=== PATIENT | female | born 1985 | race Two or more races ===

== ENCOUNTER 2018-03-01 20:15 | Observation (INO) | payer SELFPAY | END 2018-03-01 21:55 | disposition home or self-care (01) | DRG 782 | LOC: LDRP 20:15 | PROVIDERS: ADMIT Obstetrics & Gynecology; ATTEND Obstetrics & Gynecology | DX: O36.8120 Decreased fetal movements, second trimester, not applicable or unspecified (principal); Z3A.23 23 weeks gestation of pregnancy | CPT/HCPCS: 59025; 81002; G0378 ==

== ENCOUNTER 2020-03-07 21:01 | Inpatient (IN) | payer MEDICAID, OTHER ==
[~2020-03-07] VITALS: Ht 162.6 cm; Wt 85.2 kg
[2020-03-07 22:15] LABS: Basophils # (auto) 0.1 10 ^3/uL (0-0.2); Basophils % (auto) 0.4 % (0.0-2.0); Eosinophils # (auto) 0.1 10 ^3/uL (0-0.8); Eosinophils % (auto) 0.8 % (0.0-7.0); Hematocrit 40.4 % (36.0-46.0); Hemoglobin 13.7 g/dL (12.2-16.2); Lymphocytes # (auto) 4.1 10 ^3/uL (0.4-5.4); Lymphocytes % (auto) 35.5 % (10.0-50.0); Mean Corpuscular Hemoglobin 29.4 pg (28.0-32.0); Mean Corpuscular Volume 86.5 fL (80.0-100.0); Monocytes # (auto) 0.7 10 ^3/uL (0-1.3); Monocytes % (auto) 6.3 % (0.0-12.0); Neutrophils # (auto) 6.6 10 ^3/uL (1.6-8.6); Nucleated Red Blood Cells % 0.1 %; Platelet Count (auto) 291 10^3/uL (140-450); Red Blood Cells 4.68 10^6/uL (4.0-5.20); Red Cell Distribution Width 13.4 % (11.8-14.3); White Blood Cell 11.7 10^3/uL (4.4-10.8)
[2020-03-07 22:32] LABS: Albumin 3.6 g/dL (3.4-5.0); Potassium 3.3 mmol/L (3.5-5.1)
[2020-03-07 22:45] LABS: Bilirubin, Total 0.3 mg/dL (0.2-1.0); Total Protein 7.8 g/dL (6.4-8.2)
[2020-03-07 22:58] LABS: BUN/Creatinine Ratio 20.8
[2020-03-07] MEDS ORDERED: MORPHINE SULFATE 4 MG/ML SYR/VIAL IV ONE (23:15)
[2020-03-07] MEDS ORDERED: SODIUM CHLORIDE 0.9% 1,000 ML IV ONE ×2 (23:15)
[2020-03-07] MEDS ORDERED: ONDANSETRON HCL 4 MG/2 ML VIAL IV ONE (23:15)
[2020-03-07] MEDS ORDERED: POTASSIUM CHL 20 Meq TABLET PO ONE (23:30)
[2020-03-07 23:41] LABS: Urine Bacteria FEW /hpf (None Seen); Urine Blood 1+ /uL (Negative); Urine Mucus FEW (None Seen); Urine Specific Gravity 1.028 (1.001-1.035); Urine WBC 6 /hpf (0 - 5)
[2020-03-07 23:47] LABS: Amphetamine Screen, Urine NEGATIVE (NEGATIVE); Barbiturate Scree,Urine NEGATIVE (NEGATIVE); Benzodiazephine Screen, Urine NEGATIVE (NEGATIVE); Cannabinoid Screen, Urine NEGATIVE (NEGATIVE); Cocaine Screen, Urine NEGATIVE (NEGATIVE); Opiate Scree,Urine NEGATIVE (NEGATIVE); Phencyclidine Screen, Urine NEGATIVE (NEGATIVE)
[2020-03-08] MEDS ORDERED: MORPHINE SULF INJ 2 MG/ML SYRINGE 1ML IV PRN ×2 (02:45→10:30)
[2020-03-08] MEDS ORDERED: ONDANSETRON HCL 4 MG/2 ML VIAL IV PRN (02:45)
[2020-03-08] MEDS ORDERED: ACETAMINOPHEN 325 MG TAB PO PRN (02:45)
[2020-03-08] MEDS ORDERED: NITROGLYCERIN 0.4 MG SL TAB SL PRN (02:45)
[2020-03-08 04:13] LABS: Amylase 484 U/L (25-115)
[2020-03-08 04:22] LABS: Lipase 5509 U/L (73-393)
[2020-03-08 05:45] VITALS: BP 102/62
--- NOTE | 2020-03-08 05:45 | NUR ---
Telemetry admit from ER PATRICK JOESPH admitted to Telemetry unit after SBAR received. Patient oriented to DUANE LOJA, RN primary RN, unit, room, bed, and unit policies regarding patient care and visiting hours. Patient now on continuous telemetry monitoring, tele box #56 and telemetry reading on arrival to unit is NSR 88 Patient, weighed by bedscale and encouraged to call if they need something. All questions and concerns addressed, patient verbalized understanding.
--- NOTE | 2020-03-08 08:00 | NUR ---
Opening Shift Note Assumed care of patient, awake, alert and oriented X4. No S/S of distress/SOB or pain. Patient is Maldivian speaking but understands Maori and is able to communicate in Maori. Tele# 56, sinus rhythm @ 77 bpm. IV to left antecubital, 20 gauge, patent and infusing D5W/0.45% NS/KCL 20 meq @ 75 ml/hr. Instructed on POC and to call for assist PRN, verbalized understanding. Bed locked, in lowest position, call light within reach, will continue to monitor for changes Q1hr and PRN.
[2020-03-08 09:03] VITALS: BP 111/61
[2020-03-08] MEDS: D5W/SOD CHL 0.45%/KCL 20MEQ 1,000 ML IV SCH ×2 (09:14→16:54)
--- NOTE | 2020-03-08 10:20 | NUR ---
ROUNDS Dr Gregg at bedside for rounds, new orders received and followed through. Patient updated on plan of care, verbalized understanding.
[2020-03-08] MEDS ORDERED: HYDROcodone-ACET 5/325MG TAB PO PRN (10:30)
[2020-03-08] MEDS ORDERED: cefTRIAXone 1GM/50ML D5W 50 ML IV ONE (10:30)
[2020-03-08] MEDS: PANTOPRAZOLE 40 MG/10 ML VIAL INJ IV SCH (11:01)
[2020-03-08 12:32] VITALS: BP 119/62
[2020-03-08 16:41] VITALS: BP 113/60
[2020-03-08 18:36] LABS: BUN/Creatinine Ratio 14.8; Calcium 8.2 mg/dL (8.5-10.1); Potassium 3.9 mmol/L (3.5-5.1)
--- NOTE | 2020-03-08 19:12 | NUR ---
Care endorsed to RISSA Mcgee, night nurse.
--- NOTE | 2020-03-08 19:13 | NUR ---
Opening note Assumed care of patient, patient is alert and orientated x4. No sob or distress noted. Bed is locked in lowest position, side rails up x2. Patient is French speaking, laying in bed watching TV. POC reviewed. Patient verbalized understanding. Will continue to monitor q1hr and PRN.
[2020-03-08 22:00] VITALS: BP 124/74
[2020-03-09] MEDS: D5W/SOD CHL 0.45%/KCL 20MEQ 1,000 ML IV SCH ×2 (04:34→17:44)
[2020-03-09 05:00] VITALS: BP 116/62
[2020-03-09 06:06] LABS: Basophils # (auto) 0 10 ^3/uL (0-0.2); Basophils % (auto) 0.6 % (0.0-2.0); Eosinophils # (auto) 0.1 10 ^3/uL (0-0.8); Eosinophils % (auto) 1.3 % (0.0-7.0); Hematocrit 35.2 % (36.0-46.0); Hemoglobin 12.3 g/dL (12.2-16.2); Lymphocytes # (auto) 2.5 10 ^3/uL (0.4-5.4); Lymphocytes % (auto) 41.5 % (10.0-50.0); Mean Corpuscular Hemoglobin 30.2 pg (28.0-32.0); Mean Corpuscular Hgb Conc. 34.9 g/dL (32.0-36.0); Mean Corpuscular Volume 86.5 fL (80.0-100.0); Monocytes # (auto) 0.4 10 ^3/uL (0-1.3); Monocytes % (auto) 6.8 % (0.0-12.0); Neutrophils # (auto) 2.9 10 ^3/uL (1.6-8.6); Neutrophils % (auto) 49.8 % (37.0-80.0); Nucleated Red Blood Cells % 0.2 %; Platelet Count (auto) 225 10^3/uL (140-450); Red Blood Cells 4.08 10^6/uL (4.0-5.20); Red Cell Distribution Width 13.2 % (11.8-14.3); White Blood Cell 5.9 10^3/uL (4.4-10.8)
[2020-03-09 06:23] LABS: Albumin 3.1 g/dL (3.4-5.0); Calcium 7.9 mg/dL (8.5-10.1); Potassium 3.5 mmol/L (3.5-5.1)
[2020-03-09 06:27] LABS: BUN/Creatinine Ratio 13.8; Bilirubin, Total 0.3 mg/dL (0.2-1.0); Total Protein 6.5 g/dL (6.4-8.2)
--- NOTE | 2020-03-09 07:17 | NUR ---
closing note endorsed care to day shift RN. no sob or distress noted.
[2020-03-09 09:00] VITALS: BP 118/58
[2020-03-09] MEDS: cefTRIAXone 1GM/50ML D5W 50 ML IV SCH (09:05)
[2020-03-09] MEDS: PANTOPRAZOLE 40 MG/10 ML VIAL INJ IV SCH (09:05)
--- NOTE | 2020-03-09 10:43 | NUR ---
Spoke to Dr. Susan Cueto regarding verification of orders, received new orders, noted and carried it out.
[2020-03-09 13:00] VITALS: BP 115/68
--- NOTE | 2020-03-09 13:00 | NUR ---
Per Dr. Gregg, advance diet as tolerated.
[2020-03-09 17:00] VITALS: BP 117/71
--- NOTE | 2020-03-09 19:06 | NUR ---
Opening Shift Note Assumed care of patient after receiving report from RISSA Padilla. Patient is awake and alert with no S/S of distress/SOB or pain. Call light within reach, bed in lowest locked position x2 side rails, HOB semi fowlers. Instructed on POC and to call for assist PRN, will continue to monitor for changes Q1hr and PRN.
[2020-03-09 22:05] VITALS: BP 120/69
[2020-03-10 04:36] VITALS: BP 107/56
[2020-03-10 06:51] LABS: Basophils # (auto) 0.1 10 ^3/uL (0-0.2); Basophils % (auto) 0.9 % (0.0-2.0); Eosinophils # (auto) 0.1 10 ^3/uL (0-0.8); Eosinophils % (auto) 1.2 % (0.0-7.0); Hematocrit 38.5 % (36.0-46.0); Hemoglobin 13.2 g/dL (12.2-16.2); Lymphocytes # (auto) 2.2 10 ^3/uL (0.4-5.4); Lymphocytes % (auto) 36.7 % (10.0-50.0); Mean Corpuscular Hemoglobin 30.1 pg (28.0-32.0); Mean Corpuscular Hgb Conc. 34.4 g/dL (32.0-36.0); Mean Corpuscular Volume 87.3 fL (80.0-100.0); Monocytes # (auto) 0.5 10 ^3/uL (0-1.3); Monocytes % (auto) 7.5 % (0.0-12.0); Neutrophils # (auto) 3.3 10 ^3/uL (1.6-8.6); Neutrophils % (auto) 53.7 % (37.0-80.0); Nucleated Red Blood Cells % 0.1 %; Platelet Count (auto) 238 10^3/uL (140-450); Red Cell Distribution Width 13.5 % (11.8-14.3); White Blood Cell 6.1 10^3/uL (4.4-10.8)
[2020-03-10 07:10] LABS: BUN/Creatinine Ratio 16.1; Calcium 8.4 mg/dL (8.5-10.1); Potassium 3.7 mmol/L (3.5-5.1)
[2020-03-10] MEDS: cefTRIAXone 1GM/50ML D5W 50 ML IV SCH (08:35)
[2020-03-10] MEDS: PANTOPRAZOLE 40 MG/10 ML VIAL INJ IV SCH (08:35)
[2020-03-10] MEDS: D5W/SOD CHL 0.45%/KCL 20MEQ 1,000 ML IV SCH (08:50)
[2020-03-10 09:00] VITALS: BP 110/67
[2020-03-10 11:54] VITALS: BP 109/63
[2020-03-10 13:43] VITALS: BP 109/63
--- NOTE | 2020-03-10 14:41 | NUR ---
DISCHARGE NOTE PATIENT ALERT AND ORIENTED X4 ALL DISCHARGE INSTRUCTIONS GIVEN ALL QUESTIONS AND CONCERNS ADDRESSED, INFORMATION WAS PROVIDED FOR PATIENT REGARDING SETTING UP A PCP. PATIENT VERBALIZED UNDERSTANDING. IV REMOVED CATHETER INTACT PRESSURE DRESSING APPLIED PATIENT TOLERATED WELL, TELEBOX REMOVED CLEANED AND DELIVERED TO FILM SORTER ROOM. PATIENT ASSISTED TO PERSONAL VEHICLE USING WHEELCHAIR PATIENT DENIES ALL DISTRESS SOB.
== END 2020-03-10 14:40 | disposition home or self-care (01) | DRG 282 ==
LOC: ER 21:02 → OVERFLOW 21:03 → WEST WING 03-08 05:42 → TELE-WESTW 03-08 08:57
PROVIDERS: ADMIT Nurse Practitioner Family; ATTEND Internal Medicine
DX: K85.90 Acute pancreatitis without necrosis or infection, unspecified (principal); N83.202 Unspecified ovarian cyst, left side; E87.6 Hypokalemia; N39.0 Urinary tract infection, site not specified; K80.20 Calculus of gallbladder without cholecystitis without obstruction; E66.9 Obesity, unspecified; K29.70 Gastritis, unspecified, without bleeding; Z87.440 Personal history of urinary (tract) infections; Z68.32 Body mass index [BMI] 32.0-32.9, adult
CPT/HCPCS: 36415; 74176; 76705; 80048; 80053; 80307; 81001; 81025; 82150; 83690; 84443; 84484; 84702; 85025; 87081; 87086; 96361; 96374; 96375; C9113; G0378; J0696; J2405

== ENCOUNTER 2020-06-11 22:02 | Emergency (ER) | payer MEDICAID ==
[~2020-06-11] VITALS: Ht 165.1 cm; Wt 81.6 kg
[2020-06-11 23:09] LABS: Basophils # (auto) 0.1 10 ^3/uL (0-0.2); Basophils % (auto) 0.4 % (0.0-2.0); Eosinophils # (auto) 0 10 ^3/uL (0-0.8); Eosinophils % (auto) 0.1 % (0.0-7.0); Hematocrit 38.1 % (36.0-46.0); Hemoglobin 13.2 g/dL (12.2-16.2); Lymphocytes # (auto) 1.7 10 ^3/uL (0.4-5.4); Lymphocytes % (auto) 10.8 % (10.0-50.0); Mean Corpuscular Hemoglobin 29.8 pg (28.0-32.0); Mean Corpuscular Hgb Conc. 34.7 g/dL (32.0-36.0); Mean Corpuscular Volume 85.9 fL (80.0-100.0); Monocytes # (auto) 0.7 10 ^3/uL (0-1.3); Monocytes % (auto) 4.3 % (0.0-12.0); Neutrophils # (auto) 13.2 10 ^3/uL (1.6-8.6); Neutrophils % (auto) 84.4 % (37.0-80.0); Red Blood Cells 4.43 10^6/uL (4.0-5.20); Red Cell Distribution Width 13.4 % (11.8-14.3); White Blood Cell 15.6 10^3/uL (4.4-10.8)
[2020-06-11 23:13] LABS: Urine Bacteria NONE SEEN /hpf (None Seen); Urine Blood 1+ /uL (Negative); Urine Mucus FEW (None Seen); Urine Specific Gravity 1.026 (1.001-1.035); Urine WBC 23 /hpf (0 - 5)
[2020-06-11 23:27] LABS: Albumin 3.4 g/dL (3.4-5.0); Calcium 8.7 mg/dL (8.5-10.1); Potassium 3.5 mmol/L (3.5-5.1)
[2020-06-11 23:36] LABS: BUN/Creatinine Ratio 30.4; Bilirubin, Total 0.6 mg/dL (0.2-1.0); Total Protein 7.6 g/dL (6.4-8.2)
[2020-06-12] MEDS ORDERED: SODIUM CHLORIDE 0.9% 1,000 ML IV ONE (01:30)
[2020-06-12] MEDS ORDERED: ONDANSETRON HCL 4 MG/2 ML VIAL IV ONE (01:30)
[2020-06-12] MEDS ORDERED: MORPHINE SULFATE INJECTION 2 MG/ML SYRG IV ONE (01:30)
[2020-06-12] MEDS ORDERED: HYDROcodone-ACET 5/325MG TAB PO ONE (02:30)
[2020-06-12] MEDS ORDERED: ONDANSETRON ODT 4 MG TAB PO ONE (02:30)
[2020-06-12 02:47] VITALS: BP 102/62
== END 2020-06-12 05:18 | disposition home or self-care (01) ==
LOC: ER 22:05
DX: K85.90 Acute pancreatitis without necrosis or infection, unspecified (principal)
CPT/HCPCS: 36415; 74176; 76705; 80053; 81001; 82150; 83690; 84702; 85025; 99285; Q0162

== ENCOUNTER 2020-10-15 19:49 | Emergency (ER) | payer MEDICAID ==
[~2020-10-15] VITALS: Ht 162.6 cm; Wt 68.0 kg
[2020-10-15 20:43] LABS: Basophils # (auto) 0.1 10 ^3/uL (0-0.2); Basophils % (auto) 0.6 % (0.0-2.0); Eosinophils # (auto) 0.1 10 ^3/uL (0-0.8); Eosinophils % (auto) 0.4 % (0.0-7.0); Hematocrit 38.7 % (36.0-46.0); Hemoglobin 13.3 g/dL (12.2-16.2); Lymphocytes # (auto) 3.3 10 ^3/uL (0.4-5.4); Lymphocytes % (auto) 22.6 % (10.0-50.0); Mean Corpuscular Hemoglobin 29.5 pg (28.0-32.0); Mean Corpuscular Hgb Conc. 34.4 g/dL (32.0-36.0); Mean Corpuscular Volume 85.9 fL (80.0-100.0); Monocytes # (auto) 0.6 10 ^3/uL (0-1.3); Monocytes % (auto) 4.3 % (0.0-12.0); Neutrophils # (auto) 10.4 10 ^3/uL (1.6-8.6); Neutrophils % (auto) 72.1 % (37.0-80.0); Platelet Count (auto) 272 10^3/uL (140-450); Red Cell Distribution Width 13.2 % (11.8-14.3); White Blood Cell 14.4 10^3/uL (4.4-10.8)
[2020-10-15 20:47] LABS: INR 0.94 (0.9-1.15); Partial Thromboplastin Time 24.6 sec (23.0-31.2)
[2020-10-15 20:48] LABS: Alanine Aminotransferase 17 U/L (13-56); Albumin 3.8 g/dL (3.4-5.0); Anion Gap 8 (5-15); Aspartate Aminotransferase 14 U/L (15-37); BUN/Creatinine Ratio 20.3; Blood Urea Nitrogen 14 mg/dL (7-18); Calcium 8.6 mg/dL (8.5-10.1); Carbon Dioxide 26 mmol/L (21-32); Chloride 106 mmol/L (98-107); GFR African American 126 mL/min; GFR Non-African American 104 mL/min; Glucose 109 mg/dL (74-106); Magnesium 2.2 mg/dL (1.6-2.6); Potassium 3.2 mmol/L (3.5-5.1); Sodium 140 mmol/L (136-145)
[2020-10-15 20:53] LABS: Alkaline Phosphatase 115 U/L (45-117); Bilirubin, Total 0.3 mg/dL (0.2-1.0)
[2020-10-15] MEDS ORDERED: fentaNYL CITRATE 100 MCG/2 ML VL IV ONE (23:30)
[2020-10-15] MEDS ORDERED: SODIUM CHLORIDE 0.9% 1,000 ML IV ONE (23:30)
[2020-10-15] MEDS ORDERED: ONDANSETRON HCL 4 MG/2 ML VIAL IV ONE (23:30)
[2020-10-15 23:36] LABS: Urine Bacteria FEW /hpf (None Seen); Urine Blood TRACE /uL (Negative); Urine Mucus FEW (None Seen); Urine Specific Gravity 1.023 (1.001-1.035); Urine WBC 5 /hpf (0 - 5)
[2020-10-15] MEDS ORDERED: POTASSIUM CHL 20MEQ/100ML 100 ML IV ONE (23:45)
[2020-10-15] MEDS ORDERED: LACTATED RINGER'S 1,000 ML IV ONE (23:45)
[2020-10-16 03:23] VITALS: BP 104/54
== END 2020-10-16 03:50 | disposition home or self-care (01) ==
LOC: ER 19:51
DX: K80.20 Calculus of gallbladder without cholecystitis without obstruction (principal)
CPT/HCPCS: 36415; 71045; 76705; 80053; 81001; 81025; 83735; 83880; 84443; 84484; 85025; 85610; 85730; 93005; 96361; 96374; 99285; J2405; J3480; J7030

== ENCOUNTER 2021-06-05 11:30 | Emergency (ER) | payer MEDICAID ==
[~2021-06-05] VITALS: Ht 165.1 cm; Wt 89.8 kg
[2021-06-05 14:52] VITALS: BP 139/80
== END 2021-06-05 15:35 | disposition home or self-care (01) ==
LOC: ER 11:30
DX: J02.9 Acute pharyngitis, unspecified (principal); Z87.440 Personal history of urinary (tract) infections

== ENCOUNTER 2022-04-23 01:11 | Inpatient (IN) | payer MEDICAID ==
[~2022-04-23] VITALS: Ht 165.1 cm; Wt 85.8 kg
[2022-04-23 04:01] LABS: Albumin 3.6 g/dL (3.4-5.0); Calcium 8.9 mg/dL (8.5-10.1); Potassium 4.1 mmol/L (3.5-5.1)
[2022-04-23 04:05] LABS: Urine Bacteria FEW /hpf (None Seen); Urine Blood 1+ /uL (Negative); Urine Mucus FEW (None Seen); Urine Specific Gravity 1.026 (1.001-1.035); Urine WBC 59 /hpf (0 - 5)
[2022-04-23 04:06] LABS: Bilirubin, Total 4.5 mg/dL (0.2-1.0); Total Protein 7.7 g/dL (6.4-8.2)
[2022-04-23 04:08] LABS: Basophils # (auto) 0 10 ^3/uL (0-0.2); Basophils % (auto) 0.3 % (0.0-2.0); Eosinophils # (auto) 0 10 ^3/uL (0-0.8); Hematocrit 45.1 % (36.0-46.0); Hemoglobin 15.2 g/dL (12.2-16.2); Lymphocytes # (auto) 0.9 10 ^3/uL (0.4-5.4); Lymphocytes % (auto) 7.3 % (10.0-50.0); Mean Corpuscular Hemoglobin 29.1 pg (28.0-32.0); Mean Corpuscular Hgb Conc. 33.6 g/dL (32.0-36.0); Mean Corpuscular Volume 86.6 fL (80.0-100.0); Monocytes # (auto) 0.5 10 ^3/uL (0-1.3); Neutrophils # (auto) 11.1 10 ^3/uL (1.6-8.6); Neutrophils % (auto) 88.4 % (37.0-80.0); Red Blood Cells 5.21 10^6/uL (4.0-5.20); Red Cell Distribution Width 13.3 % (11.8-14.3); White Blood Cell 12.6 10^3/uL (4.4-10.8)
[2022-04-23 04:51] LABS: BUN/Creatinine Ratio 13.6
[2022-04-23] MEDS ORDERED: ONDANSETRON HCL 4 MG/2 ML VIAL IV ONE (06:45)
[2022-04-23] MEDS ORDERED: SODIUM CHLORIDE 0.9% 1,000 ML IV ONE (06:45)
[2022-04-23] MEDS ORDERED: MORPHINE SULFATE 4 MG/ML SYR/VIAL IV ONE (06:45)
[2022-04-23] MEDS ORDERED: cefTRIAXone 1GM/50ML D5W 50 ML IV ONE (08:30)
[2022-04-23] MEDS ORDERED: metroNIDAZOLE 500MG/100ML 100 ML IV ONE (08:30)
[2022-04-23 09:55] LABS: Lactic Acid w/Reflex 2.2 mmol/L (0.4-2.0)
[2022-04-23] MEDS ORDERED: HYDROmorphone HCL 2 MG/ML VL/or syr IV ONE (12:15)
[2022-04-23] MEDS: metroNIDAZOLE 500MG/100ML 100 ML IV SCH ×2 (14:51→21:33)
[2022-04-23] MEDS ORDERED: LACTATED RINGER'S 1,000 ML IV SCH (15:00)
[2022-04-23] MEDS ORDERED: ONDANSETRON HCL 4 MG/2 ML VIAL IV PRN (15:00)
[2022-04-23] MEDS ORDERED: D5W/SOD CHL 0.45%/KCL 20MEQ 1,000 ML IV ONE (15:00)
[2022-04-23] MEDS ORDERED: SODIUM CHLORIDE 0.9% 2,000 ML IV ONE (15:30)
[2022-04-23 16:01] LABS: Magnesium 2.3 mg/dL (1.6-2.6); Phosphorus 2.8 mg/dL (2.5-4.90)
[2022-04-23] MEDS: HYDROmorphone HCL 2 MG/ML VL/or syr IV PRN ×2 (17:10→21:34)
[2022-04-23 17:55] VITALS: BP 126/66
[2022-04-23 20:10] VITALS: BP 126/66
[2022-04-23 22:00] VITALS: BP 136/85
[2022-04-24] MEDS: HYDROmorphone HCL 2 MG/ML VL/or syr IV PRN ×5 (01:56→21:37)
[2022-04-24 05:00] VITALS: BP 120/69
[2022-04-24 05:30] LABS: Basophils # (auto) 0 10 ^3/uL (0-0.2); Basophils % (auto) 0.2 % (0.0-2.0); Eosinophils # (auto) 0 10 ^3/uL (0-0.8); Hematocrit 38.4 % (36.0-46.0); Hemoglobin 12.7 g/dL (12.2-16.2); Lymphocytes # (auto) 1.5 10 ^3/uL (0.4-5.4); Lymphocytes % (auto) 9.9 % (10.0-50.0); Mean Corpuscular Hemoglobin 28.6 pg (28.0-32.0); Mean Corpuscular Hgb Conc. 33.1 g/dL (32.0-36.0); Mean Corpuscular Volume 86.7 fL (80.0-100.0); Monocytes # (auto) 0.7 10 ^3/uL (0-1.3); Monocytes % (auto) 4.7 % (0.0-12.0); Neutrophils # (auto) 12.9 10 ^3/uL (1.6-8.6); Neutrophils % (auto) 85.2 % (37.0-80.0); Nucleated Red Blood Cells % 0.1 %; Red Blood Cells 4.42 10^6/uL (4.0-5.20); Red Cell Distribution Width 13.6 % (11.8-14.3); White Blood Cell 15.2 10^3/uL (4.4-10.8)
[2022-04-24 05:47] LABS: Albumin 2.7 g/dL (3.4-5.0); Calcium 7.5 mg/dL (8.5-10.1); Potassium 3.8 mmol/L (3.5-5.1)
[2022-04-24 05:50] LABS: Bilirubin, Total 1.4 mg/dL (0.2-1.0); Total Protein 5.6 g/dL (6.4-8.2)
[2022-04-24] MEDS: SODIUM CHLORIDE 0.9% 1,000 ML IV SCH ×5 (06:00→21:15)
[2022-04-24] MEDS: metroNIDAZOLE 500MG/100ML 100 ML IV SCH ×3 (06:02→21:36)
[2022-04-24 09:00] VITALS: BP 122/69
[2022-04-24] MEDS: CEFTRIAXONE SODIUM 2 GM in D5W 5% 50 ML IV SCH (09:56)
[2022-04-24] MEDS ORDERED: PANTOPRAZOLE 40 MG/10 ML VIAL INJ IV SCH (10:00)
[2022-04-24 13:00] VITALS: BP 127/86
[2022-04-24 13:01] VITALS: BP 108/52
[2022-04-24 17:00] VITALS: BP 136/89
[2022-04-24 22:00] VITALS: BP 115/67
[2022-04-25] MEDS: SODIUM CHLORIDE 0.9% 1,000 ML IV SCH ×3 (02:15→07:15)
[2022-04-25] MEDS: HYDROmorphone HCL 2 MG/ML VL/or syr IV PRN ×7 (03:15→23:15)
[2022-04-25 05:00] VITALS: BP 119/65
[2022-04-25 05:24] LABS: Basophils # (auto) 0.1 10 ^3/uL (0-0.2); Basophils % (auto) 0.5 % (0.0-2.0); Eosinophils # (auto) 0 10 ^3/uL (0-0.8); Hematocrit 35.2 % (36.0-46.0); Hemoglobin 11.8 g/dL (12.2-16.2); Lymphocytes # (auto) 1.8 10 ^3/uL (0.4-5.4); Lymphocytes % (auto) 12.1 % (10.0-50.0); Mean Corpuscular Hemoglobin 29.1 pg (28.0-32.0); Mean Corpuscular Hgb Conc. 33.6 g/dL (32.0-36.0); Mean Corpuscular Volume 86.6 fL (80.0-100.0); Monocytes # (auto) 0.9 10 ^3/uL (0-1.3); Monocytes % (auto) 5.6 % (0.0-12.0); Neutrophils # (auto) 12.5 10 ^3/uL (1.6-8.6); Neutrophils % (auto) 81.8 % (37.0-80.0); Red Blood Cells 4.06 10^6/uL (4.0-5.20); White Blood Cell 15.3 10^3/uL (4.4-10.8)
[2022-04-25 05:46] LABS: Albumin 2.3 g/dL (3.4-5.0); Potassium 3.1 mmol/L (3.5-5.1)
[2022-04-25 05:54] LABS: BUN/Creatinine Ratio 16.9; Bilirubin, Total 1.6 mg/dL (0.2-1.0)
[2022-04-25] MEDS: metroNIDAZOLE 500MG/100ML 100 ML IV SCH ×3 (06:43→22:30)
[2022-04-25 08:00] VITALS: BP 109/76
[2022-04-25 09:00] VITALS: BP 109/76
[2022-04-25] MEDS: ACETAMINOPHEN 325 MG TAB PO PRN ×2 (09:04→23:15)
[2022-04-25] MEDS: CEFTRIAXONE SODIUM 2 GM in D5W 5% 50 ML IV SCH (11:41)
[2022-04-25 13:00] VITALS: BP 109/64
[2022-04-25] MEDS: SOD CHL 0.9%/ KCL 20MEQ 1,000 ML IV SCH (13:59)
[2022-04-25 17:00] VITALS: BP 126/76
[2022-04-25 22:00] VITALS: BP 130/69
[2022-04-26] VITALS (7 sets, daily range): BP systolic 119–136; BP diastolic 66–84
[2022-04-26] MEDS: SOD CHL 0.9%/ KCL 20MEQ 1,000 ML IV SCH ×3 (02:11→17:49)
[2022-04-26] MEDS: HYDROmorphone HCL 2 MG/ML VL/or syr IV PRN ×8 (02:15→23:34)
[2022-04-26] MEDS: metroNIDAZOLE 500MG/100ML 100 ML IV SCH ×3 (05:20→21:10)
[2022-04-26 08:19] LABS: Basophils # (auto) 0 10 ^3/uL (0-0.2); Basophils % (auto) 0.3 % (0.0-2.0); Eosinophils # (auto) 0 10 ^3/uL (0-0.8); Eosinophils % (auto) 0.1 % (0.0-7.0); Hematocrit 32.2 % (36.0-46.0); Hemoglobin 10.7 g/dL (12.2-16.2); Lymphocytes # (auto) 2.1 10 ^3/uL (0.4-5.4); Lymphocytes % (auto) 14.4 % (10.0-50.0); Mean Corpuscular Hemoglobin 29.2 pg (28.0-32.0); Mean Corpuscular Hgb Conc. 33.3 g/dL (32.0-36.0); Mean Corpuscular Volume 87.8 fL (80.0-100.0); Monocytes % (auto) 7.2 % (0.0-12.0); Neutrophils # (auto) 11.2 10 ^3/uL (1.6-8.6); Red Blood Cells 3.66 10^6/uL (4.0-5.20); Red Cell Distribution Width 13.6 % (11.8-14.3); White Blood Cell 14.4 10^3/uL (4.4-10.8)
[2022-04-26 08:28] LABS: Albumin 2.2 g/dL (3.4-5.0); BUN/Creatinine Ratio 26.2; Bilirubin, Total 1.1 mg/dL (0.2-1.0); Calcium 7.3 mg/dL (8.5-10.1); Potassium 3.3 mmol/L (3.5-5.1); Total Protein 5.2 g/dL (6.4-8.2)
[2022-04-26] MEDS: CEFTRIAXONE SODIUM 2 GM in D5W 5% 50 ML IV SCH (10:31)
[2022-04-27] MEDS: SOD CHL 0.9%/ KCL 20MEQ 1,000 ML IV SCH ×3 (02:22→17:02)
[2022-04-27] MEDS: HYDROmorphone HCL 2 MG/ML VL/or syr IV PRN ×6 (02:24→21:00)
[2022-04-27 05:00] VITALS: BP 135/82
[2022-04-27] MEDS: metroNIDAZOLE 500MG/100ML 100 ML IV SCH ×3 (05:51→21:00)
[2022-04-27 06:53] LABS: Potassium 3.6 mmol/L (3.5-5.1)
[2022-04-27 07:00] LABS: Albumin 2.6 g/dL (3.4-5.0); BUN/Creatinine Ratio 18.2; Calcium 8.1 mg/dL (8.5-10.1)
[2022-04-27 07:02] LABS: Bilirubin, Total 0.7 mg/dL (0.2-1.0); Total Protein 6.2 g/dL (6.4-8.2)
[2022-04-27 07:06] LABS: Basophils # (auto) 0.1 10 ^3/uL (0-0.2); Basophils % (auto) 0.4 % (0.0-2.0); Eosinophils # (auto) 0.1 10 ^3/uL (0-0.8); Eosinophils % (auto) 0.4 % (0.0-7.0); Hematocrit 34.5 % (36.0-46.0); Hemoglobin 11.5 g/dL (12.2-16.2); Lymphocytes # (auto) 2.5 10 ^3/uL (0.4-5.4); Lymphocytes % (auto) 16.4 % (10.0-50.0); Mean Corpuscular Hemoglobin 29.4 pg (28.0-32.0); Mean Corpuscular Hgb Conc. 33.4 g/dL (32.0-36.0); Mean Corpuscular Volume 88.1 fL (80.0-100.0); Monocytes % (auto) 6.9 % (0.0-12.0); Neutrophils # (auto) 11.3 10 ^3/uL (1.6-8.6); Neutrophils % (auto) 75.9 % (37.0-80.0); Red Blood Cells 3.92 10^6/uL (4.0-5.20); Red Cell Distribution Width 13.9 % (11.8-14.3); White Blood Cell 14.9 10^3/uL (4.4-10.8)
[2022-04-27 08:30] VITALS: BP 133/83
[2022-04-27] MEDS ORDERED: cefTRIAXone 1GM/50ML D5W 50 ML IV SCH (09:00)
[2022-04-27] MEDS ORDERED: IOHEXOL 300 MG/ML 100ML BOTTLE IJ ONE (09:37)
[2022-04-27] MEDS ORDERED: OMNIPAQUE ORAL SOLN 500ml 12mg/ml PO ONE (09:45)
[2022-04-27 12:30] VITALS: BP 137/79
[2022-04-27 17:00] VITALS: BP 146/84
[2022-04-27 22:00] VITALS: BP 119/65
[2022-04-28] MEDS: HYDROmorphone HCL 2 MG/ML VL/or syr IV PRN ×5 (00:11→15:00)
[2022-04-28] MEDS: SOD CHL 0.9%/ KCL 20MEQ 1,000 ML IV SCH ×4 (00:15→22:10)
[2022-04-28 05:00] VITALS: BP 123/76
[2022-04-28] MEDS: metroNIDAZOLE 500MG/100ML 100 ML IV SCH (05:22)
[2022-04-28 05:46] LABS: Basophils # (auto) 0.1 10 ^3/uL (0-0.2); Basophils % (auto) 0.4 % (0.0-2.0); Eosinophils # (auto) 0.1 10 ^3/uL (0-0.8); Eosinophils % (auto) 0.6 % (0.0-7.0); Hematocrit 31.9 % (36.0-46.0); Hemoglobin 10.7 g/dL (12.2-16.2); Lymphocytes # (auto) 2.3 10 ^3/uL (0.4-5.4); Lymphocytes % (auto) 15.8 % (10.0-50.0); Mean Corpuscular Hemoglobin 29.1 pg (28.0-32.0); Mean Corpuscular Hgb Conc. 33.6 g/dL (32.0-36.0); Mean Corpuscular Volume 86.6 fL (80.0-100.0); Monocytes % (auto) 6.6 % (0.0-12.0); Neutrophils % (auto) 76.6 % (37.0-80.0); Nucleated Red Blood Cells % 0.1 %; Red Blood Cells 3.68 10^6/uL (4.0-5.20); Red Cell Distribution Width 13.4 % (11.8-14.3); White Blood Cell 14.4 10^3/uL (4.4-10.8)
[2022-04-28 05:59] LABS: Albumin 2.3 g/dL (3.4-5.0); Potassium 3.5 mmol/L (3.5-5.1)
[2022-04-28 06:02] LABS: BUN/Creatinine Ratio 17.1
[2022-04-28 06:04] LABS: Bilirubin, Total 0.6 mg/dL (0.2-1.0); Total Protein 6.3 g/dL (6.4-8.2)
[2022-04-28 08:41] VITALS: BP 127/71
[2022-04-28 12:30] VITALS: BP 109/70
[2022-04-28 17:00] VITALS: BP 130/73
[2022-04-28] MEDS: KETOROLAC TROMETH 30 MG/ML 1ML VIAL IV PRN (20:06)
[2022-04-28] MEDS: ACETAMINOPHEN 325 MG TAB PO PRN (21:37)
[2022-04-28 22:00] VITALS: BP 137/84
[2022-04-29] MEDS: KETOROLAC TROMETH 30 MG/ML 1ML VIAL IV PRN (02:25)
[2022-04-29 05:00] VITALS: BP 136/80
[2022-04-29] MEDS: SOD CHL 0.9%/ KCL 20MEQ 1,000 ML IV SCH ×3 (05:52→22:39)
[2022-04-29] MEDS: HYDROmorphone HCL 2 MG/ML VL/or syr IV PRN ×5 (05:53→22:44)
[2022-04-29 06:30] LABS: Hematocrit 31.6 % (36.0-46.0); Hemoglobin 10.5 g/dL (12.2-16.2); Mean Corpuscular Hemoglobin 28.7 pg (28.0-32.0); Mean Corpuscular Hgb Conc. 33.2 g/dL (32.0-36.0); Mean Corpuscular Volume 86.5 fL (80.0-100.0); Red Blood Cells 3.65 10^6/uL (4.0-5.20); Red Cell Distribution Width 13.9 % (11.8-14.3); White Blood Cell 13.4 10^3/uL (4.4-10.8)
[2022-04-29 06:41] LABS: Basophils % (manual) 0 (0.0-2.0); Blast Cells 0; Eosinophils % (manual) 0 (0-7); Metamyelocytes % 0; Myelocytes % 0; Promyelocytes % 0
[2022-04-29 07:10] LABS: Potassium 3.8 mmol/L (3.5-5.1)
[2022-04-29 07:11] LABS: Albumin 2.2 g/dL (3.4-5.0); BUN/Creatinine Ratio 16.7; Bilirubin, Total 0.7 mg/dL (0.2-1.0); Calcium 7.9 mg/dL (8.5-10.1); Total Protein 6.1 g/dL (6.4-8.2)
[2022-04-29 09:02] VITALS: BP 126/73
[2022-04-29 11:02] LABS: Band Neutrophils % (manual) 13; Lymphocytes % (manual) 29 (10.0-50.0); Monocytes % (manual) 7 (0-12); Reactive Lymphocytes 1
[2022-04-29 13:25] VITALS: BP 118/77
[2022-04-29 16:50] VITALS: BP 129/75
[2022-04-29 22:00] VITALS: BP 116/54
[2022-04-30] MEDS: HYDROmorphone HCL 2 MG/ML VL/or syr IV PRN ×5 (02:15→20:36)
[2022-04-30 05:29] VITALS: BP 114/62
[2022-04-30] MEDS: SOD CHL 0.9%/ KCL 20MEQ 1,000 ML IV SCH ×3 (06:09→18:00)
[2022-04-30 06:42] LABS: Basophils # (auto) 0 10 ^3/uL (0-0.2); Basophils % (auto) 0.3 % (0.0-2.0); Eosinophils # (auto) 0.1 10 ^3/uL (0-0.8); Hematocrit 32.5 % (36.0-46.0); Lymphocytes # (auto) 2.7 10 ^3/uL (0.4-5.4); Lymphocytes % (auto) 18.4 % (10.0-50.0); Mean Corpuscular Hemoglobin 29.4 pg (28.0-32.0); Mean Corpuscular Hgb Conc. 33.9 g/dL (32.0-36.0); Mean Corpuscular Volume 86.6 fL (80.0-100.0); Monocytes # (auto) 1.1 10 ^3/uL (0-1.3); Monocytes % (auto) 7.3 % (0.0-12.0); Neutrophils # (auto) 10.6 10 ^3/uL (1.6-8.6); Nucleated Red Blood Cells % 0.1 %; Red Blood Cells 3.75 10^6/uL (4.0-5.20); Red Cell Distribution Width 14.1 % (11.8-14.3); White Blood Cell 14.5 10^3/uL (4.4-10.8)
[2022-04-30 07:06] LABS: Potassium 4.2 mmol/L (3.5-5.1)
[2022-04-30 07:22] LABS: Albumin 2.3 g/dL (3.4-5.0); BUN/Creatinine Ratio 8.3; Calcium 8.1 mg/dL (8.5-10.1)
[2022-04-30 07:25] LABS: Bilirubin, Total 0.5 mg/dL (0.2-1.0); Total Protein 5.8 g/dL (6.4-8.2)
[2022-04-30 09:00] VITALS: BP 137/75
[2022-04-30 13:00] VITALS: BP 114/66
[2022-04-30 17:00] VITALS: BP 110/63
[2022-04-30 22:03] VITALS: BP 112/73
[2022-05-01] MEDS: HYDROmorphone HCL 2 MG/ML VL/or syr IV PRN ×6 (00:24→22:04)
[2022-05-01] MEDS: SOD CHL 0.9%/ KCL 20MEQ 1,000 ML IV SCH ×4 (01:00→17:37)
[2022-05-01 05:53] VITALS: BP 128/77
[2022-05-01 06:42] LABS: Basophils # (auto) 0.1 10 ^3/uL (0-0.2); Basophils % (auto) 0.7 % (0.0-2.0); Eosinophils # (auto) 0.3 10 ^3/uL (0-0.8); Eosinophils % (auto) 2.1 % (0.0-7.0); Hematocrit 33.8 % (36.0-46.0); Hemoglobin 11.4 g/dL (12.2-16.2); Lymphocytes # (auto) 2.4 10 ^3/uL (0.4-5.4); Lymphocytes % (auto) 18.4 % (10.0-50.0); Mean Corpuscular Hemoglobin 29.1 pg (28.0-32.0); Mean Corpuscular Hgb Conc. 33.6 g/dL (32.0-36.0); Mean Corpuscular Volume 86.5 fL (80.0-100.0); Monocytes % (auto) 7.6 % (0.0-12.0); Neutrophils # (auto) 9.2 10 ^3/uL (1.6-8.6); Neutrophils % (auto) 71.2 % (37.0-80.0); Nucleated Red Blood Cells % 0.1 %; Red Cell Distribution Width 13.7 % (11.8-14.3); White Blood Cell 12.9 10^3/uL (4.4-10.8)
[2022-05-01 07:04] LABS: Albumin 2.4 g/dL (3.4-5.0); Calcium 8.4 mg/dL (8.5-10.1); Potassium 4.3 mmol/L (3.5-5.1)
[2022-05-01 07:05] LABS: Bilirubin, Total 0.5 mg/dL (0.2-1.0); Total Protein 6.5 g/dL (6.4-8.2)
[2022-05-01 08:16] VITALS: BP 102/67
[2022-05-01 12:18] VITALS: BP 106/55
[2022-05-01 17:00] VITALS: BP 129/78
[2022-05-01 22:00] VITALS: BP 125/78
[2022-05-02] MEDS: SOD CHL 0.9%/ KCL 20MEQ 1,000 ML IV SCH ×3 (01:46→19:21)
[2022-05-02] MEDS: HYDROmorphone HCL 2 MG/ML VL/or syr IV PRN ×5 (01:47→22:38)
[2022-05-02 05:00] VITALS: BP_SYST 102; BP_SYST 108; BP_DIAS 57; BP_DIAS 66
[2022-05-02 09:00] VITALS: BP 102/61
[2022-05-02 13:00] VITALS: BP 117/65
[2022-05-02 17:12] VITALS: BP 107/60
[2022-05-02 22:00] VITALS: BP 120/65
[2022-05-03] MEDS: HYDROmorphone HCL 2 MG/ML VL/or syr IV PRN ×4 (03:59→21:39)
[2022-05-03 05:00] VITALS: BP 102/53
[2022-05-03] MEDS: SOD CHL 0.9%/ KCL 20MEQ 1,000 ML IV SCH ×2 (05:42→14:32)
[2022-05-03 09:00] VITALS: BP 133/64
[2022-05-03 13:00] VITALS: BP 101/62
[2022-05-03 17:55] VITALS: BP 102/61
[2022-05-03 22:53] VITALS: BP 107/70
[2022-05-04] MEDS: SOD CHL 0.9%/ KCL 20MEQ 1,000 ML IV SCH ×3 (01:49→18:11)
[2022-05-04] MEDS: HYDROmorphone HCL 2 MG/ML VL/or syr IV PRN ×4 (01:55→20:47)
[2022-05-04 05:30] VITALS: BP 111/61
[2022-05-04 06:44] LABS: Basophils # (auto) 0 10 ^3/uL (0-0.2); Basophils % (auto) 0.4 % (0.0-2.0); Eosinophils # (auto) 0.2 10 ^3/uL (0-0.8); Hematocrit 34.7 % (36.0-46.0); Hemoglobin 11.2 g/dL (12.2-16.2); Lymphocytes # (auto) 2.1 10 ^3/uL (0.4-5.4); Lymphocytes % (auto) 20.5 % (10.0-50.0); Mean Corpuscular Hemoglobin 28.1 pg (28.0-32.0); Mean Corpuscular Hgb Conc. 32.4 g/dL (32.0-36.0); Mean Corpuscular Volume 86.8 fL (80.0-100.0); Monocytes # (auto) 0.7 10 ^3/uL (0-1.3); Monocytes % (auto) 6.7 % (0.0-12.0); Neutrophils # (auto) 7.2 10 ^3/uL (1.6-8.6); Neutrophils % (auto) 70.4 % (37.0-80.0); Red Blood Cells 3.99 10^6/uL (4.0-5.20); Red Cell Distribution Width 13.6 % (11.8-14.3); White Blood Cell 10.2 10^3/uL (4.4-10.8)
[2022-05-04 09:31] VITALS: BP 100/56
[2022-05-04 11:15] LABS: Chloride 108 mmol/L (98-107); Sodium 139 mmol/L (136-145)
[2022-05-04 11:42] LABS: Alanine Aminotransferase 24 U/L (13-56); Albumin 2.5 g/dL (3.4-5.0); Anion Gap 13 (5-15); Aspartate Aminotransferase 16 U/L (15-37); BUN/Creatinine Ratio 13.5; Blood Urea Nitrogen 7 mg/dL (7-18); Calcium 8.5 mg/dL (8.5-10.1); Carbon Dioxide 18 mmol/L (21-32); GFR African American 174 mL/min; GFR Non-African American 143 mL/min; Glucose 65 mg/dL (74-106)
[2022-05-04 11:44] LABS: Alkaline Phosphatase 90 U/L (45-117); Bilirubin, Total 0.6 mg/dL (0.2-1.0); Total Protein 6.3 g/dL (6.4-8.2)
[2022-05-04 13:58] VITALS: BP 115/65
[2022-05-04 17:41] VITALS: BP 106/53
[2022-05-04 20:20] VITALS: BP 121/55
[2022-05-04 22:00] VITALS: BP 121/55
[2022-05-05] VITALS (7 sets, daily range): BP systolic 105–125; BP diastolic 47–71
[2022-05-05] MEDS: SOD CHL 0.9%/ KCL 20MEQ 1,000 ML IV SCH ×3 (02:38→17:03)
[2022-05-05] MEDS: HYDROmorphone HCL 2 MG/ML VL/or syr IV PRN ×4 (02:40→22:39)
[2022-05-06] MEDS: SOD CHL 0.9%/ KCL 20MEQ 1,000 ML IV SCH ×4 (00:45→23:51)
[2022-05-06 05:00] VITALS: BP 115/67
[2022-05-06 09:00] VITALS: BP 106/62
[2022-05-06] MEDS: HYDROmorphone HCL 2 MG/ML VL/or syr IV PRN ×2 (09:28→20:09)
[2022-05-06] MEDS ORDERED: IOHEXOL 300 MG/ML 100ML BOTTLE IJ ONE (10:01)
[2022-05-06] MEDS: PANTOPRAZOLE 40 MG/10 ML VIAL INJ IV SCH (10:30)
[2022-05-06 13:00] VITALS: BP 94/44
[2022-05-06 17:00] VITALS: BP 122/58
[2022-05-06 20:20] VITALS: BP 104/61
[2022-05-06 22:00] VITALS: BP 104/61
[2022-05-07 05:00] VITALS: BP 110/58
[2022-05-07] MEDS: SOD CHL 0.9%/ KCL 20MEQ 1,000 ML IV SCH ×4 (07:33→19:00)
[2022-05-07 09:26] VITALS: BP 93/52
[2022-05-07] MEDS: PANTOPRAZOLE 40 MG/10 ML VIAL INJ IV SCH (10:17)
[2022-05-07] MEDS: HYDROmorphone HCL 2 MG/ML VL/or syr IV PRN ×2 (10:20→17:58)
[2022-05-07 10:24] VITALS: BP 101/54
[2022-05-07 10:29] LABS: Eosinophils # (auto) 0.1 10 ^3/uL (0-0.8); Lymphocytes # (auto) 2.3 10 ^3/uL (0.4-5.4); Mean Corpuscular Volume 86.4 fL (80.0-100.0); Monocytes # (auto) 0.5 10 ^3/uL (0-1.3); Nucleated Red Blood Cells % 0.1 %
[2022-05-07 10:30] LABS: Basophils # (auto) 0.1 10 ^3/uL (0-0.2); Basophils % (auto) 0.8 % (0.0-2.0); Hematocrit 36.3 % (36.0-46.0); Mean Corpuscular Hemoglobin 28.6 pg (28.0-32.0); Mean Corpuscular Hgb Conc. 33.1 g/dL (32.0-36.0); Monocytes % (auto) 8.2 % (0.0-12.0); Neutrophils # (auto) 3.3 10 ^3/uL (1.6-8.6); Red Cell Distribution Width 13.2 % (11.8-14.3); White Blood Cell 6.3 10^3/uL (4.4-10.8)
[2022-05-07 10:47] LABS: Albumin 2.8 g/dL (3.4-5.0); BUN/Creatinine Ratio 11.4; Calcium 9.1 mg/dL (8.5-10.1); Potassium 4.1 mmol/L (3.5-5.1)
[2022-05-07 10:50] LABS: Bilirubin, Total 0.5 mg/dL (0.2-1.0); Total Protein 7.2 g/dL (6.4-8.2)
[2022-05-07 14:14] VITALS: BP 95/57
[2022-05-07 16:47] VITALS: BP 110/59
[2022-05-07 22:00] VITALS: BP 114/45
[2022-05-08] MEDS: SOD CHL 0.9%/ KCL 20MEQ 1,000 ML IV SCH ×4 (02:00→20:14)
[2022-05-08 05:00] VITALS: BP 105/60
[2022-05-08] MEDS: HYDROmorphone HCL 2 MG/ML VL/or syr IV PRN ×3 (05:53→20:13)
[2022-05-08 06:09] LABS: Basophils # (auto) 0 10 ^3/uL (0-0.2); Basophils % (auto) 0.7 % (0.0-2.0); Eosinophils # (auto) 0.1 10 ^3/uL (0-0.8); Eosinophils % (auto) 1.9 % (0.0-7.0); Hematocrit 35.7 % (36.0-46.0); Hemoglobin 11.7 g/dL (12.2-16.2); Lymphocytes # (auto) 2.3 10 ^3/uL (0.4-5.4); Lymphocytes % (auto) 38.2 % (10.0-50.0); Mean Corpuscular Hemoglobin 28.4 pg (28.0-32.0); Mean Corpuscular Hgb Conc. 32.9 g/dL (32.0-36.0); Mean Corpuscular Volume 86.4 fL (80.0-100.0); Monocytes # (auto) 0.4 10 ^3/uL (0-1.3); Monocytes % (auto) 7.4 % (0.0-12.0); Neutrophils # (auto) 3.1 10 ^3/uL (1.6-8.6); Neutrophils % (auto) 51.8 % (37.0-80.0); Red Blood Cells 4.13 10^6/uL (4.0-5.20); Red Cell Distribution Width 13.4 % (11.8-14.3)
[2022-05-08 06:26] LABS: BUN/Creatinine Ratio 10.6; Calcium 8.9 mg/dL (8.5-10.1); Potassium 4.6 mmol/L (3.5-5.1)
[2022-05-08 06:53] LABS: CRP High Sensitivity 2.71 mg/dL (< 0.3)
[2022-05-08 09:00] VITALS: BP 94/51
[2022-05-08] MEDS: PANTOPRAZOLE 40 MG/10 ML VIAL INJ IV SCH (09:43)
[2022-05-08 13:00] VITALS: BP 95/53
[2022-05-08 17:00] VITALS: BP 114/67
[2022-05-08] MEDS ORDERED: HYDROmorphone HCL 2 MG/ML VL/or syr IV ONE (20:00)
[2022-05-08 22:00] VITALS: BP 104/56
[2022-05-09] MEDS: SOD CHL 0.9%/ KCL 20MEQ 1,000 ML IV SCH ×4 (02:32→16:13)
[2022-05-09 05:00] VITALS: BP 108/54
[2022-05-09 05:43] LABS: Basophils # (auto) 0.1 10 ^3/uL (0-0.2); Basophils % (auto) 0.9 % (0.0-2.0); Eosinophils # (auto) 0.1 10 ^3/uL (0-0.8); Eosinophils % (auto) 1.6 % (0.0-7.0); Hematocrit 37.4 % (36.0-46.0); Lymphocytes # (auto) 2.7 10 ^3/uL (0.4-5.4); Lymphocytes % (auto) 44.1 % (10.0-50.0); Mean Corpuscular Hgb Conc. 32.2 g/dL (32.0-36.0); Mean Corpuscular Volume 87.2 fL (80.0-100.0); Monocytes # (auto) 0.4 10 ^3/uL (0-1.3); Monocytes % (auto) 6.8 % (0.0-12.0); Neutrophils # (auto) 2.8 10 ^3/uL (1.6-8.6); Neutrophils % (auto) 46.6 % (37.0-80.0); Nucleated Red Blood Cells % 0.1 %; Red Blood Cells 4.29 10^6/uL (4.0-5.20); Red Cell Distribution Width 13.3 % (11.8-14.3)
[2022-05-09 05:52] LABS: Potassium 4.4 mmol/L (3.5-5.1)
[2022-05-09 06:08] LABS: BUN/Creatinine Ratio 10.6; CRP High Sensitivity 1.86 mg/dL (< 0.3); Calcium 9.1 mg/dL (8.5-10.1)
[2022-05-09] MEDS: PANTOPRAZOLE 40 MG/10 ML VIAL INJ IV SCH ×3 (08:34→22:50)
[2022-05-09 08:51] VITALS: BP 107/65
[2022-05-09] MEDS: HYDROmorphone HCL 2 MG/ML VL/or syr IV PRN ×3 (09:45→22:50)
[2022-05-09 13:00] VITALS: BP 95/49
[2022-05-09 16:37] VITALS: BP 113/62
[2022-05-09] MEDS ORDERED: PIPERACILLIN-TAZOB 3.375GM 100 ML IV ONE (16:45)
[2022-05-09 22:00] VITALS: BP 103/59
[2022-05-09] MEDS ORDERED: PIPERACILLIN-TAZOB 3.375GM 100 ML IV SCH (23:00)
[2022-05-10] MEDS: SOD CHL 0.9%/ KCL 20MEQ 1,000 ML IV SCH ×4 (01:33→19:33)
[2022-05-10 05:00] VITALS: BP 103/63
[2022-05-10 05:47] LABS: Basophils # (auto) 0.1 10 ^3/uL (0-0.2); Basophils % (auto) 1.1 % (0.0-2.0); Eosinophils # (auto) 0.1 10 ^3/uL (0-0.8); Eosinophils % (auto) 1.6 % (0.0-7.0); Hematocrit 35.9 % (36.0-46.0); Lymphocytes # (auto) 2.4 10 ^3/uL (0.4-5.4); Lymphocytes % (auto) 38.5 % (10.0-50.0); Mean Corpuscular Hemoglobin 28.9 pg (28.0-32.0); Mean Corpuscular Hgb Conc. 33.5 g/dL (32.0-36.0); Mean Corpuscular Volume 86.3 fL (80.0-100.0); Monocytes # (auto) 0.5 10 ^3/uL (0-1.3); Monocytes % (auto) 7.4 % (0.0-12.0); Neutrophils # (auto) 3.2 10 ^3/uL (1.6-8.6); Neutrophils % (auto) 51.4 % (37.0-80.0); Nucleated Red Blood Cells % 0.1 %; Red Blood Cells 4.16 10^6/uL (4.0-5.20); Red Cell Distribution Width 13.3 % (11.8-14.3); White Blood Cell 6.2 10^3/uL (4.4-10.8)
[2022-05-10 06:08] LABS: BUN/Creatinine Ratio 10.6; Potassium 4.8 mmol/L (3.5-5.1); Total Protein 6.7 g/dL (6.4-8.2)
[2022-05-10 06:10] LABS: Bilirubin, Total 0.6 mg/dL (0.2-1.0)
[2022-05-10] MEDS: HYDROmorphone HCL 2 MG/ML VL/or syr IV PRN ×3 (06:18→19:33)
[2022-05-10 08:30] VITALS: BP 98/56
[2022-05-10] MEDS ORDERED: OMNIPAQUE ORAL SOLN 500ml 12mg/ml PO ONE (09:22)
[2022-05-10] MEDS ORDERED: IOHEXOL 300 MG/ML 100ML BOTTLE IJ ONE (09:22)
[2022-05-10] MEDS: PANTOPRAZOLE 40 MG/10 ML VIAL INJ IV SCH ×2 (10:25→23:16)
[2022-05-10 12:55] VITALS: BP 100/56
[2022-05-10 17:00] VITALS: BP 107/57
[2022-05-10] MEDS ORDERED: cefTRIAXone 1GM/50ML D5W 50 ML IV ONE (17:30)
[2022-05-10 22:00] VITALS: BP 104/49
[2022-05-10 23:33] LABS: Urine Bacteria None Seen /hpf (None Seen); Urine WBC None Seen /hpf (0 - 5)
[2022-05-11] MEDS: SOD CHL 0.9%/ KCL 20MEQ 1,000 ML IV SCH ×3 (01:27→17:21)
[2022-05-11] MEDS: HYDROmorphone HCL 2 MG/ML VL/or syr IV PRN ×4 (04:01→20:23)
[2022-05-11 05:00] VITALS: BP 98/46
[2022-05-11 05:11] LABS: Basophils # (auto) 0.1 10 ^3/uL (0-0.2); Basophils % (auto) 1.1 % (0.0-2.0); Eosinophils # (auto) 0.1 10 ^3/uL (0-0.8); Eosinophils % (auto) 1.4 % (0.0-7.0); Hematocrit 37.9 % (36.0-46.0); Hemoglobin 12.6 g/dL (12.2-16.2); Lymphocytes # (auto) 2.2 10 ^3/uL (0.4-5.4); Lymphocytes % (auto) 41.4 % (10.0-50.0); Mean Corpuscular Hemoglobin 28.9 pg (28.0-32.0); Mean Corpuscular Hgb Conc. 33.3 g/dL (32.0-36.0); Mean Corpuscular Volume 86.7 fL (80.0-100.0); Monocytes # (auto) 0.4 10 ^3/uL (0-1.3); Monocytes % (auto) 7.9 % (0.0-12.0); Neutrophils # (auto) 2.5 10 ^3/uL (1.6-8.6); Neutrophils % (auto) 48.2 % (37.0-80.0); Nucleated Red Blood Cells % 0.1 %; Red Blood Cells 4.38 10^6/uL (4.0-5.20); Red Cell Distribution Width 13.5 % (11.8-14.3); White Blood Cell 5.2 10^3/uL (4.4-10.8)
[2022-05-11 05:20] LABS: Calcium 8.9 mg/dL (8.5-10.1); Potassium 4.4 mmol/L (3.5-5.1)
[2022-05-11 05:22] LABS: BUN/Creatinine Ratio 9.5
[2022-05-11 08:00] VITALS: BP 100/57
[2022-05-11] MEDS: PANTOPRAZOLE 40 MG/10 ML VIAL INJ IV SCH ×2 (08:40→20:21)
[2022-05-11] MEDS ORDERED: cefTRIAXone 1GM/50ML D5W 50 ML IV SCH (09:00)
[2022-05-11 12:00] VITALS: BP 97/53
[2022-05-11 16:00] VITALS: BP 105/55
[2022-05-11 22:00] VITALS: BP 108/61
[2022-05-12] MEDS: HYDROmorphone HCL 2 MG/ML VL/or syr IV PRN ×5 (03:37→21:28)
[2022-05-12 05:00] VITALS: BP 101/54
[2022-05-12 06:25] LABS: Basophils # (auto) 0.1 10 ^3/uL (0-0.2); Basophils % (auto) 1.1 % (0.0-2.0); Eosinophils # (auto) 0.1 10 ^3/uL (0-0.8); Eosinophils % (auto) 1.7 % (0.0-7.0); Hematocrit 35.6 % (36.0-46.0); Hemoglobin 11.8 g/dL (12.2-16.2); Lymphocytes % (auto) 40.5 % (10.0-50.0); Mean Corpuscular Hemoglobin 28.5 pg (28.0-32.0); Mean Corpuscular Hgb Conc. 33.3 g/dL (32.0-36.0); Mean Corpuscular Volume 85.8 fL (80.0-100.0); Monocytes # (auto) 0.4 10 ^3/uL (0-1.3); Monocytes % (auto) 8.2 % (0.0-12.0); Neutrophils # (auto) 2.4 10 ^3/uL (1.6-8.6); Neutrophils % (auto) 48.5 % (37.0-80.0); Red Blood Cells 4.15 10^6/uL (4.0-5.20); Red Cell Distribution Width 13.2 % (11.8-14.3); White Blood Cell 4.9 10^3/uL (4.4-10.8)
[2022-05-12 06:34] LABS: Potassium 4.5 mmol/L (3.5-5.1)
[2022-05-12] MEDS: SOD CHL 0.9%/ KCL 20MEQ 1,000 ML IV SCH ×5 (06:43→23:04)
[2022-05-12 06:52] LABS: BUN/Creatinine Ratio 7.1; CRP High Sensitivity 1.03 mg/dL (< 0.3); Calcium 8.8 mg/dL (8.5-10.1)
[2022-05-12 09:12] VITALS: BP 92/49
[2022-05-12] MEDS: PANTOPRAZOLE 40 MG/10 ML VIAL INJ IV SCH ×2 (09:50→20:28)
[2022-05-12 13:19] VITALS: BP 107/55
[2022-05-12 17:15] VITALS: BP 101/55
[2022-05-12 22:00] VITALS: BP 100/53
[2022-05-13] MEDS: HYDROmorphone HCL 2 MG/ML VL/or syr IV PRN ×3 (04:11→18:24)
[2022-05-13 05:00] VITALS: BP 97/53
[2022-05-13] MEDS: SOD CHL 0.9%/ KCL 20MEQ 1,000 ML IV SCH ×3 (05:39→19:45)
[2022-05-13 05:50] LABS: Basophils # (auto) 0.1 10 ^3/uL (0-0.2); Basophils % (auto) 1.4 % (0.0-2.0); Eosinophils # (auto) 0.1 10 ^3/uL (0-0.8); Eosinophils % (auto) 2.6 % (0.0-7.0); Hematocrit 34.9 % (36.0-46.0); Hemoglobin 11.6 g/dL (12.2-16.2); Lymphocytes % (auto) 46.3 % (10.0-50.0); Mean Corpuscular Hemoglobin 28.9 pg (28.0-32.0); Mean Corpuscular Hgb Conc. 33.3 g/dL (32.0-36.0); Mean Corpuscular Volume 86.6 fL (80.0-100.0); Monocytes # (auto) 0.4 10 ^3/uL (0-1.3); Monocytes % (auto) 9.5 % (0.0-12.0); Neutrophils # (auto) 1.8 10 ^3/uL (1.6-8.6); Neutrophils % (auto) 40.2 % (37.0-80.0); Nucleated Red Blood Cells % 0.1 %; Red Blood Cells 4.03 10^6/uL (4.0-5.20); Red Cell Distribution Width 13.5 % (11.8-14.3); White Blood Cell 4.4 10^3/uL (4.4-10.8)
[2022-05-13 06:02] LABS: Calcium 8.5 mg/dL (8.5-10.1); Potassium 4.1 mmol/L (3.5-5.1)
[2022-05-13 06:04] LABS: BUN/Creatinine Ratio 4.3; CRP High Sensitivity 0.84 mg/dL (< 0.3)
[2022-05-13 08:50] VITALS: BP 101/50
[2022-05-13] MEDS: PANTOPRAZOLE 40 MG/10 ML VIAL INJ IV SCH ×2 (10:58→21:54)
[2022-05-13 12:40] VITALS: BP 103/55
[2022-05-13 16:40] VITALS: BP 109/67
[2022-05-13 22:00] VITALS: BP 121/53
[2022-05-14] MEDS: HYDROmorphone HCL 2 MG/ML VL/or syr IV PRN ×4 (01:24→18:35)
[2022-05-14] MEDS: SOD CHL 0.9%/ KCL 20MEQ 1,000 ML IV SCH ×3 (02:30→18:37)
[2022-05-14 05:00] VITALS: BP 104/57
[2022-05-14 09:00] VITALS: BP_SYST 102; BP_SYST 122; BP_SYST 216; BP_DIAS 59; BP_DIAS 68; BP_DIAS 82
[2022-05-14] MEDS ORDERED: POLYETHYLENE GLYCOL 17 GM PWDR PO PRN (10:00)
[2022-05-14] MEDS ORDERED: ACETAMINOPHEN 325 MG TAB PO PRN (10:00)
[2022-05-14] MEDS: PANTOPRAZOLE 40 MG/10 ML VIAL INJ IV SCH ×2 (10:02→23:48)
[2022-05-14] MEDS: POLYETHYLENE GLYCOL 17 GM PWDR PO SCH (12:07)
[2022-05-14 13:00] VITALS: BP 101/57
[2022-05-14] MEDS: SENNA 8.6 MG TAB PO PRN (15:41)
[2022-05-14 16:33] VITALS: BP 96/58
[2022-05-14 22:00] VITALS: BP 132/60
[2022-05-14] MEDS ORDERED: SENNA 8.6 MG TAB PO SCH (22:00)
[2022-05-15] MEDS: HYDROmorphone HCL 2 MG/ML VL/or syr IV PRN ×4 (01:17→18:00)
[2022-05-15] MEDS: SOD CHL 0.9%/ KCL 20MEQ 1,000 ML IV SCH ×3 (01:18→08:30)
[2022-05-15 05:08] VITALS: BP 98/63
[2022-05-15 08:00] VITALS: BP 102/61
[2022-05-15] MEDS: PANTOPRAZOLE 40 MG/10 ML VIAL INJ IV SCH (08:28)
[2022-05-15] MEDS: POLYETHYLENE GLYCOL 17 GM PWDR PO SCH (08:29)
[2022-05-15] MEDS: SENNA 8.6 MG TAB PO PRN (08:30)
[2022-05-15] MEDS ORDERED: ENOXAPARIN SOD 40 MG/0.4 ML SYRINGE SC SCH (10:00)
[2022-05-15 12:00] VITALS: BP 107/60
[2022-05-15 17:00] VITALS: BP 113/62
[2022-05-15 17:42] VITALS: BP 113/62
[2022-05-15 18:00] VITALS: BP 112/78
== END 2022-05-15 18:50 | disposition home or self-care (01) | DRG 282 ==
LOC: ER 01:11 → OVERFLOW 14:56 → EAST 16:45 → CENTRAL 04-26 17:51
PROVIDERS: ADMIT Nurse Practitioner Family; ATTEND Student in an Organized Health Care Education/Training Program
DX: K85.10 Biliary acute pancreatitis without necrosis or infection (principal); R65.10 Systemic inflammatory response syndrome (SIRS) of non-infectious origin without acute organ dysfunction; N30.00 Acute cystitis without hematuria; E66.9 Obesity, unspecified; Z68.32 Body mass index [BMI] 32.0-32.9, adult; R19.7 Diarrhea, unspecified; Z20.822 Contact with and (suspected) exposure to COVID-19; Z87.442 Personal history of urinary calculi; R73.9 Hyperglycemia, unspecified; R74.01 Elevation of levels of liver transaminase levels; K80.20 Calculus of gallbladder without cholecystitis without obstruction
CPT/HCPCS: 36415; 74176; 74177; 74181; 76705; 78226; 80048; 80053; 80061; 81001; 81015; 81025; 82962; 83036; 83605; 83690; 83735; 84100; 84478; 84702; 85007; 85025; 85027; 86141; 87040; 87086; 87426; 87493; 96365; 96375; C9113; G0378; J0696; J1885; J2405; J2543; J3490; J7060

== ENCOUNTER 2022-05-28 21:10 | Emergency (ER) | payer MEDICAID ==
[~2022-05-28] VITALS: Ht 160 cm; Wt 81.4 kg
[2022-05-28 21:38] LABS: Hemoglobin 12.3 g/dL (12.2-16.2); Mean Corpuscular Hemoglobin 28.7 pg (28.0-32.0); Mean Corpuscular Hgb Conc. 33.3 g/dL (32.0-36.0); Mean Corpuscular Volume 86.3 fL (80.0-100.0); Red Blood Cells 4.29 10^6/uL (4.0-5.20); Red Cell Distribution Width 14.7 % (11.8-14.3); White Blood Cell 6.4 10^3/uL (4.4-10.8)
[2022-05-28 21:47] LABS: Band Neutrophils % (manual) 0; Basophils % (manual) 0 (0.0-2.0); Blast Cells 0; Metamyelocytes % 0; Myelocytes % 0; Promyelocytes % 0; Reactive Lymphocytes 0
[2022-05-28 22:01] LABS: INR 0.99 (0.9-1.15); Partial Thromboplastin Time 27.4 sec (24.6-33.4)
[2022-05-28 23:00] LABS: Eosinophils % (manual) 1 (0-7); Lymphocytes % (manual) 56 (10.0-50.0); Monocytes % (manual) 10 (0-12)
[2022-05-28 23:24] LABS: Albumin 3.6 g/dL (3.4-5.0); BUN/Creatinine Ratio 18.3; Calcium 9.1 mg/dL (8.5-10.1); Magnesium 1.8 mg/dL (1.6-2.6); Potassium 3.5 mmol/L (3.5-5.1)
[2022-05-28 23:27] LABS: Bilirubin, Total 0.5 mg/dL (0.2-1.0); Total Protein 7.2 g/dL (6.4-8.2)
[2022-05-29] MEDS ORDERED: OXYCODONE W/ ACETAMINOPHEN 5/325MG TABLET PO ONE (02:30)
[2022-05-29 03:51] VITALS: BP 124/75
== END 2022-05-29 08:16 | disposition home or self-care (01) ==
LOC: ER 21:10
DX: R07.89 Other chest pain (principal); Z88.8 Allergy status to other drugs, medicaments and biological substances
CPT/HCPCS: 36415; 71045; 74176; 80053; 83735; 83880; 84484; 85007; 85027; 85610; 85730; 93005